=== PATIENT | female | born 1985 | race Caucasian/White ===

== ENCOUNTER 2017-01-23 14:27 | Emergency (ER) | payer BC ==
[2017-01-23 14:38] VITALS: TEMP 97.7
--- NOTE | 2017-01-23 14:47 | EDPHY ---
H & P Smoking Status: Never smoked Time Seen by Provider: 01/23/17 14:39 HPI/ROS: CHIEF COMPLAINT: Epigastric pain HISTORY OF PRESENT ILLNESS: This is a 32-year-old female presenting to the emergency room complaining of epigastric pain with nausea and 1 episode of vomiting onset at 1400. Patient states she also had an episode of increased lower back pain, she thinks may have been exacerbated by the vomiting. Patient states she does have a history of chronic lower back pain. Patient states she was fine last night and fine this morning ate breakfast without any nausea vomiting, but an hour after eating lunch the epigastric pain started. Denies any other complaints REVIEW OF SYSTEMS: Constitutional: No fever, no chills. Eyes: No discharge. ENT: No sore throat. Cardiovascular: No chest pain, no palpitations. Respiratory: No cough, no shortness of breath. Gastrointestinal: Epigastric pain, nausea and vomiting Genitourinary: No hematuria. Musculoskeletal: Lower back pain. Skin: No rashes. Neurological: No headache. (Mindy Gilliam) Physical Exam: General Appearance: Alert and no distress. Eyes: Pupils equal and round no injection. Respiratory: Chest is nontender, lungs are clear to auscultation. Cardiac: regular rate and rhythm Gastrointestinal: Abdomen is soft, nondistended, epigastric and right upper quadrant tenderness on palpation, no masses, bowel sounds normal. Musculoskeletal: Neck is supple and nontender. Extremities: full range of motion and are nontender. Skin: No rashes or lesions. (Mindy Gilliam) Constitutional: Initial Vital Signs Temperature (C) 36.5 C 01/23/17 14:35 Heart Rate 67 01/23/17 14:35 Respiratory Rate 18 01/23/17 14:35 Blood Pressure 92/73 L 01/23/17 14:35 O2 Sat (%) 100 01/23/17 14:35 O2 Delivery Mode Room Air Allergies/Adverse Reactions: No Known Allergies Allergy (Unverified 03/03/15 16:06) Home Medications: Medication Instructions Recorded NK [No Known Home Meds] 03/03/15 Medical Decision Making - Diagnostics Imaging Results: Imaging Impressions Abdomen Ultrasound 01/23/17 15:05 Impression: 1. Cholelithiasis. Results called to Dr. Shashi Mcnair at 1600. Ultrasound reviewed with Dr. Mascorro at 3:57 p.m. shows multiple gallstones but no evidence of cholecystitis. Specifically normal common bile duct, no wall thickening, no pericholecystic fluid. (Shashi Mcnair) ED Course/Re-evaluation: Discussed the plan of care: CBC, CMP, lipase, gallbladder ultrasound 1600: Discussed all results and ultrasound with patient, she is positive for gallstones 1615: No apparent distress, well appearing no nausea vomiting 0/10 pain. Discharge home---> stable, discussed discharge instructions with patient (Mindy Gilliam) Differential Diagnosis: other differential diagnosis considered but not limited to cholecystitis, common bile duct obstruction, and GERD (Mindy Gilliam) Other Provider: PHYSICIAN DOCUMENTATION: The patient was evaluated and managed by the nurse practitioner and myself. I have reviewed the chart and agree with the findings and plan of care as documented. In addition, I examined the patient myself at 1455. History confirmed as nausea vomiting x1 and epigastric pain radiating to the back which is now gone. Family history of gallstones in her mother, occasional alcohol, primary care physician Juan Miguel Dallas. Physical findings as follows: Negative for Rojas sign, minimal epigastric tenderness. Plan for labs to include lipase and liver function tests, ultrasound of the gallbladder. I am the secondary supervising physician. (Shashi Mcnair) - Data Points Laboratory Results: Laboratory Results 01/23/17 14:50 01/23/17 14:50 01/23/17 01/23/17 01/23/17 14:50 14:50 14:50 WBC 8.50 10^3/uL 10^3/uL (3.80-9.50) RBC 4.62 10^6/uL 10^6/uL (4.18-5.33) Hgb 13.7 g/dL g/dL (12.6-16.3) Hct 40.4 % % (38.0-47.0) MCV 87.4 fL fL (81.5-99.8) MCH 29.7 pg pg (27.9-34.1) MCHC 33.9 g/dL g/dL (32.4-36.7) RDW 12.8 % % (11.5-15.2) Plt Count 252 10^3/uL 10^3/uL (150-400) MPV 10.4 fL fL (8.7-11.7) Neut % (Auto) 70.7 % % (39.3-74.2) Lymph % (Auto) 22.6 % % (15.0-45.0) Parmer % (Auto) 5.4 % % (4.5-13.0) Eos % (Auto) 0.4 % L % (0.6-7.6) Baso % (Auto) 0.5 % % (0.3-1.7) Nucleat RBC Rel Count 0.0 % % (0.0-0.2) Absolute Neuts (auto) 6.02 10^3/uL 10^3/uL (1.70-6.50) Absolute Lymphs (auto) 1.92 10^3/uL 10^3/uL (1.00-3.00) Absolute Monos (auto) 0.46 10^3/uL 10^3/uL (0.30-0.80) Absolute Eos (auto) 0.03 10^3/uL 10^3/uL (0.03-0.40) Absolute Basos (auto) 0.04 10^3/uL 10^3/uL (0.02-0.10) Absolute Nucleated RBC 0.00 10^3/uL 10^3/uL (0-0.01) Immature Gran % 0.4 % % (0.0-1.1) Immature Gran # 0.03 10^3/uL 10^3/uL (0.00-0.10) Sodium 139 mEq/L mEq/L (134-144) Potassium 4.1 mEq/L mEq/L (3.5-5.2) Chloride 105 mEq/L mEq/L (97-110) Carbon Dioxide 24 mEq/l mEq/l (22-31) Anion Gap 10 mEq/L mEq/L (8-16) BUN 14 mg/dL mg/dL (7-23) Creatinine 0.8 mg/dL mg/dL (0.6-1.0) Estimated GFR > 60 Glucose 150 mg/dL H mg/dL (70-100) Calcium 8.8 mg/dL mg/dL (8.5-10.4) Total Bilirubin 1.0 mg/dL mg/dL (0.1-1.4) AST 77 IU/L H IU/L (14-46) ALT 56 IU/L H IU/L (9-52) Alkaline Phosphatase 46 IU/L IU/L (38-126) Total Protein 6.7 g/dL g/dL (6.3-8.2) Albumin 4.1 g/dL g/dL (3.5-5.0) Lipase 214.0 IU/L IU/L (23-300) Beta HCG, Qual NEGATIVE Departure - Departure Disposition: Home, Routine, Self-Care Clinical Impression: Biliary colic, Gallstones Condition: Good Instructions: Biliary Colic (ED), Gallstones (ED) Additional Instructions: Discharge instructions 1. Follow up with your primary care provider as needed 2. Decrease any fatty food and fried food Referrals: Juan Miguel Dallas DO [Primary Care Provider] - As per Instructions Kirit Fischer MD [Medical Doctor] - As per Instructions
[2017-01-23 15:03] LABS: % IMMATURE GRANULYOCYTES 0.4 % (0.0-1.1); ABSOLUTE IMMATURE GRANULOCYTES 0.03 10^3/uL (0.00-0.10); ADD DIFF? NO; ADD MORPH? NO; ADD SCAN? NO; ATYPICAL LYMPHOCYTE FLAG 10 (0-99); FRAGMENT RBC FLAG 0 (0-99); HEMATOCRIT 40.4 % (38.0-47.0); HEMOGLOBIN 13.7 g/dL (12.6-16.3); LEFT SHIFT FLG 10 (0-99); LIPEMIA HEMOLYSIS FLAG 90 (0-99); MEAN CELL HEMOGLOBIN 29.7 pg (27.9-34.1); MEAN CELL HEMOGLOBIN CONCENTR. 33.9 g/dL (32.4-36.7); MEAN CELL VOLUME 87.4 fL (81.5-99.8); MEAN PLATELET VOLUME 10.4 fL (8.7-11.7); PLATELET CLUMPS FLAG 0 (0-99); PLATELET COUNT 252 10^3/uL (150-400); RED BLOOD CELL COUNT 4.62 10^6/uL (4.18-5.33); RED CELL DISTRIBUTION WIDTH 12.8 % (11.5-15.2)
[2017-01-23 15:25] LABS: ALANINE AMINOTRANSFERASE 56 IU/L (9-52); ALBUMIN 4.1 g/dL (3.5-5.0); ALKALINE PHOSPHATASE 46 IU/L (38-126); ANION GAP 10 mEq/L (8-16); ASPARTATE AMINOTRANSFERASE 77 IU/L (14-46); CALCIUM 8.8 mg/dL (8.5-10.4); CARBON DIOXIDE 24 mEq/l (22-31); CHLORIDE 105 mEq/L (97-110); CREATININE 0.8 mg/dL (0.6-1.0); GLOMERULAR FILTRATION RATE > 60; GLUCOSE 150 mg/dL (70-100); POTASSIUM 4.1 mEq/L (3.5-5.2); SODIUM 139 mEq/L (134-144); TOTAL PROTEIN 6.7 g/dL (6.3-8.2)
[2017-01-23 16:14] VITALS: BP 108/57; PULSE 72; RESP 16; O2SAT 97
== END 2017-01-23 16:24 | disposition home or self-care (01) ==
DX: K80.70 Calculus of gallbladder and bile duct without cholecystitis without obstruction (principal)

== ENCOUNTER 2017-02-11 05:48 | Day surgery (SDC) | payer BC ==
[2017-02-11] MEDS ORDERED: LIDOCAINE 1% 2 ML INJ ONE (06:26)
[2017-02-11] MEDS ORDERED: BUPIVACAINE/EPI 0.25% 30 ML SDV ONE (06:56)
[2017-02-11] MEDS ORDERED: SCOPOLAMINE HYDROBROMIDE 1.5 MG PATCH TD ONE ×2 (07:02→07:30)
[2017-02-11] MEDS ORDERED: MIDAZOLAM 2 MG/2 ML VIAL ONE (07:03)
[2017-02-11] MEDS ORDERED: CEFAZOLIN 2 GM/DEXTROSE/100 ML BAG IV ONE (07:03)
[2017-02-11] MEDS ORDERED: fentaNYL 100 MCG/2 ML INJ ONE ×2 (07:04→08:46)
[2017-02-11] MEDS ORDERED: PROPOFOL 200 MG/20 ML VIAL ONE ×2 (07:05→07:27)
[2017-02-11] MEDS ORDERED: ceFAZolin 2 GM/DEXTROSE 100 ML IV ONE (07:30)
[2017-02-11] MEDS ORDERED: ONDANSETRON 4 MG/2 ML VIAL ONE (09:11)
[2017-02-11] MEDS ORDERED: HYDROCODONE/APAP 5/325 TAB ONE (11:07)
--- NOTE | 2017-02-11 11:37 | GOP ---
[f rep st] OPERATIVE REPORT DATE OF OPERATION: 02/11/2017 SURGEON: Kirit Fischer MD RACING DRIVER: None. ANESTHESIA: General endotracheal. ANESTHESIOLOGIST: Dr. Diane. PREOPERATIVE DIAGNOSIS: Biliary colic. POSTOPERATIVE DIAGNOSIS: Biliary colic. PROCEDURE PERFORMED: Laparoscopic cholecystectomy. FINDINGS: Critical view was obtained. Stones were noted within the gallbladder proper. SPECIMENS: Gallbladder. ESTIMATED BLOOD LOSS: 5 cc. DESCRIPTION OF PROCEDURE: The patient was greeted in the preoperative suite. Once again, risks, be nefits, and alternatives were discussed. The consent was signed. She was then brought back to the operative suite, placed on the OR table in the supine position. After all anesthesia, machines, inc Doctor [employer] SCDs, were on and functioning, a [employer] time-out was performed. Antibioti cs were given on-call to the operating room. After successful induction of general anesthesia, the patient's abdomen was widely prepped and draped in the typical sterile fashion. I entered the abdom en via an infraumbilical cutdown through which I threaded the Veress needle. Once successfully in t he abdomen, I insufflated with CO2 to 15 mmHg which was tolerated well by the patient. I then inser lisa a 12 mm Visiport under direct visualization through this site. I then inserted an additional 5 mm trocar in the subxiphoid and 2 in the right upper quadrant, all under direct visualization. I gr asped the fundus of the gallbladder and successfully retracted it over the dome of the liver. I ret racted the infundibulum laterally and using a combination of electrocautery and blunt dissection, I identified 2, and only 2, structures leading toward the gallbladder proper. I identified these and skeletonized them as the cystic duct and cystic artery. I ligated them with titanium clips, 2 proxi denisa, 1 distal, and then divided them in that order. My clips on the cystic duct appeared to be fa lling off somewhat, so I elected to place an 0 PDS Endoloop in addition to them which was placed wit hout issue. After division of the duct and artery, I then took the gallbladder off the liver bed us ing electrocautery. It was then placed in an EndoCatch bag and removed. Local anesthesia was infil trated into all port sites. The right upper quadrant was then irrigated with warm normal saline, no ting clear effluent in the suction canister. My ports were then removed under direct visualization. My infraumbilical cutdown site was closed with a [id number] 0 Vicryl, noting excellent fascia l reapproximation. The skin was closed with running 4-0 Monocryl over which Dermabond was placed. The patient was then extubated in the operative suite and taken to the PACU in satisfactory conditio n. DRAINS: None. COUNTS: All counts were reported as correct x2. /[id number]/MODL
== END 2017-02-11 12:40 | disposition home or self-care (01) ==
LOC: FSGY 05:48
PROVIDERS: ATTEND Surgery
PROC: 0FT44ZZ Resection of Gallbladder, Percutaneous Endoscopic Approach (ICD-10-PCS; principal; 2017-02-11 07:15)
DX: K80.50 Calculus of bile duct without cholangitis or cholecystitis without obstruction (principal); G47.33 Obstructive sleep apnea (adult) (pediatric)
CPT/HCPCS: J0690; J2250; J2405; J2704; J3010